=== PATIENT | male | born 1960 | race Caucasian/White ===

== ENCOUNTER 2017-04-01 13:58 | Emergency (ER) | payer MEDICARE, OTHER ==
[~2017-04-01] VITALS: Ht 185.4 cm; Wt 12.8 kg
[~2017-04-01 13:58] MED LIST: /PREG100CA PO; ABIL10TA PO; ABIL1TAB11 PO; ABIL1TAB12 PO; AZIL1TAB PO; AZIL1TAB2 PO; BEN GAY TOP; BUPR75TA5 PO; CLON2TAB PO; MELO7.5T7 PO; MICR10CA PO; MINI2CAP PO; MOTR200T PO; POTA10IN2 PO; PRAV1TAB39 PO; PREG100CA PO; PRIM250T8 PO; PRIM25TA PO; PROP10TA56 PO; REME15TA PO; ROPI1TA PO; ROPI2TAB24 PO; SERT-138 PO; TRAZ-136 PO; TRAZ100T2 PO; VITA-122 PO; VITATAB11 PO; [UNRECOGNIZED DRUG - CODE] PO
[2017-04-01] MEDS ORDERED: METF500T13 PO (14:08)
[2017-04-01] MEDS ORDERED: ASPIRIN 81 MG CHEW TABLET PO ONE (14:30)
[2017-04-01 14:32] LABS: BASO % 0.6 % (0.0-1.0); EOS # 0.2 K/mm3 (0.0-0.50); EOS % 2.9 % (0.0-3.0); LARGE UNSTAINED CELL # 0.2 K/mm3 (0.0-0.4); LARGE UNSTAINED CELL % 2.3 % (0.0-4.0); LYMPH # 2.5 K/mm3 (1.5-4.5); LYMPH % 29.9 % (24.0-44.0); MEAN CORPUSCULAR HEMOGLOBIN 29.9 pg (27.0-33.0); MEAN CORPUSCULAR HGB CONC 34.5 g/dl (32.0-36.5); MEAN CORPUSCULAR VOLUME 86.6 fl (80.0-96.0); MONO # 0.5 K/mm3 (0.0-0.8); NEUTROPHILS # 4.5 K/mm3 (1.8-7.7); NEUTROPHILS % 58.3 % (36.0-66.0); PLATELET COUNT, AUTOMATED 258 k/mm3 (150-450); RED CELL DISTRIBUTION WIDTH 13.1 % (11.5-14.5); WHITE BLOOD COUNT 7.7 K/mm3 (4.0-10.0)
[2017-04-01 14:56] LABS: ANION GAP 9 MEQ/L (8-16); BLOOD UREA NITROGEN 13 MG/DL (7-18); CARBON DIOXIDE LEVEL 25 MEQ/L (21-32); CHLORIDE LEVEL 112 MEQ/L (98-107); CREATININE FOR GFR 0.95 MG/DL (0.70-1.30); GLOMERULAR FILTRATION RATE > 60.0 (>56); GLUCOSE, FASTING 104 MG/DL (70-105); POTASSIUM SERUM 4.2 MEQ/L (3.5-5.1); SODIUM LEVEL 146 MEQ/L (136-145)
--- NOTE | 2017-04-01 15:19 | REP ---
PORTABLE CHEST, SINGLE VIEW: COMPARISON: 02/14/2014 There is mild bibasilar fibroatelectatic change. There is no acute infiltrate. The heart is normal in size. Mediastinal silhouette is unremarkable. IMPRESSION: Mild bibasilar fibroatelectatic change. No acute infiltrate. Signed by Ky Zamora MD 04/01/2017 04:47 P
[2017-04-01] MEDS ORDERED: ISOVUE-370 76% 100ML VIAL (Q9967) As Ordered ONE (15:23)
[2017-04-01] MEDS ORDERED: KETOROLAC 30 MG/ML VIAL (J1885) IV ONE (16:15)
--- NOTE | 2017-04-01 16:53 | REP ---
CT ANGIOGRAM OF THE CHEST: TECHNIQUE: Axial contrast enhanced images from the thoracic inlet to the upper abdomen using 100 mL Isovue 370 intravenous contrast material with multiplanar reformations. There are bibasilar fibro atelectatic changes. No acute infiltrate is seen in either lung. There is no thoracic aortic aneurysm or dissection. Pulmonary arteries are not optimally visualized due to breathing motion but no central pulmonary embolism is seen. There is no mediastinal, hilar, or chest wall lymphadenopathy. There is no pleural or pericardial effusion. Heart is normal in size. Visualized upper abdominal structures appear unremarkable. IMPRESSION: No thoracic aortic aneurysm or dissection. No central pulmonary embolism, the more peripheral pulmonary artery branches are not optimally seen due to breathing motion. Signed by Ky Zamora MD 04/04/2017 08:59 A
[2017-04-01 17:09] VITALS: BP 134/67
--- NOTE | 2017-04-02 08:15 | ECGEPIP ---
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
== END 2017-04-01 17:40 | disposition home or self-care (01) ==
LOC: M ED 13:58
DX: R07.89 Other chest pain (principal); R51 Headache; E11.9 Type 2 diabetes mellitus without complications; E78.5 Hyperlipidemia, unspecified; Z79.84 Long term (current) use of oral hypoglycemic drugs; Z79.899 Other long term (current) drug therapy
CPT/HCPCS: 71010; 71275; 80048; 82550; 82553; 83880; 84484; 85025; 93005; 93041; 94760; 96374; 99285; J1885; Q9967

== ENCOUNTER → 2017-05-19 | Outpatient (CLI) | payer MEDICARE, OTHER ==
[~2017-05-19] MED LIST changes: +METF500T13 PO
--- NOTE | 2017-05-24 19:12 | SLEEPCENT ---
DATE OF PROCEDURE: 05/19/2017 REQUESTING PROVIDER: Sivan Culver NP INTERPRETATION: Nocturnal polysomnography was performed due to concern for the obstructive sleep apnea syndrome in this patient with a prior history of obstructive sleep apnea, comorbidities of left ventricular hypertrophy and posttraumatic stress disorder (PTSD). 6 hours and 54 minutes of data were reviewed. There were 263 minutes of sleep identified. Sleep latency was prolonged at 47 minutes. Rapid eye movement (REM) latency was prolonged at 236 minutes. Sleep architecture showed poor progression with two brief REM episodes noted. Overall sleep efficiency was 64.5%. Electrocardiogram (EKG) showed a sinus rhythm with frequency PVCs. Average heart rate 62 beats per minute. Electroencephalogram (EEG) showed some coarsening in the background. No focal events were identified. There 38 respiratory events identified of 10 seconds in duration or greater for an apnea hypopnea index of 8.7. The events were primarily obstructive, not exclusive to sleep stage nor body posture. Respiratory related arousals occurred 1.6 times per hour. Some limb activity was noted but arousals from limb events were few. Oxygen desaturations surrounding respiratory events fell into the 80s. IMPRESSION: Obstructive sleep apnea syndrome (G47.33). Apnea-hypopnea index of 8.7. RECOMMENDATIONS: The patient should be encouraged to return to the sleep disorder center for pressure therapy. In the interim, alcohol and sedative avoidance should be practiced and caution exercised during the operation of motor vehicles.
== END ==
LOC: M SLEEP 18:54
PROVIDERS: ATTEND Nurse Practitioner Adult Health
DX: G47.33 Obstructive sleep apnea (adult) (pediatric) (principal)

== ENCOUNTER 2018-09-20 10:34 | Emergency (ER) | payer MEDICARE, OTHER ==
[~2018-09-20] VITALS: Ht 182.9 cm; Wt 129.6 kg
[~2018-09-20 10:34] MED LIST changes: +ASPI81TA85 PO; +ATOR80TA59 PO; +CLON2TAB7 PO; +PRAZ5CAP PO; +PROAAER10 INH; -TRAZ-136 PO; +TRAZ-163 PO
[2018-09-20] MEDS ORDERED: ASPIRIN 325 MG TAB PO ONE (11:00)
[2018-09-20 11:01] LABS: BASO % 0.3 % (0.0-1.0); EOS # 0.2 10^3/uL (0.0-0.50); EOS % 2.5 % (0.0-3.0); HEMATOCRIT 40.8 % (42.0-52.0); HEMOGLOBIN 13.7 g/dl (13.5-17.5); LYMPH # 2.2 10^3/uL (1.5-4.5); LYMPH % 25.2 % (24.0-44.0); MEAN CORPUSCULAR HEMOGLOBIN 29.3 pg (27.0-33.0); MEAN CORPUSCULAR HGB CONC 33.6 g/dl (32.0-36.5); MEAN CORPUSCULAR VOLUME 87.2 fl (80.0-96.0); MONO # 0.7 10^3/uL (0.0-0.8); MONO % 7.6 % (0.0-5.0); NEUTROPHILS # 5.6 10^3/uL (1.8-7.7); NEUTROPHILS % 64.1 % (36.0-66.0); PLATELET COUNT, AUTOMATED 259 10^3/uL (150-450); RED BLOOD COUNT 4.68 10^6/uL (4.30-6.10); WHITE BLOOD COUNT 8.7 10^3/uL (4.0-10.0)
[2018-09-20 11:16] LABS: INR 0.91; PROTHROMBIN TIME 12.3 SECONDS (12.1-14.4)
--- NOTE | 2018-09-20 11:16 | REP ---
Chest one-view HISTORY: Chest pain Comparison: 11/13/2017 The lungs are clear. The heart is normal in size. The pulmonary vasculature is normal in appearance. Impression: No acute disease. Electronically Signed by Fabrizio Mazariegos MD 09/20/2018 11:08 A
[2018-09-20 11:48] LABS: D-DIMER QUANT < 270.0 ng/ml (<500)
[2018-09-20 11:51] LABS: ALBUMIN 3.3 GM/DL (3.2-5.2); ALT/SGPT 62 U/L (12-78); BILIRUBIN,DIRECT < 0.1 MG/DL (0.0-0.2); BILIRUBIN,TOTAL 0.3 MG/DL (0.2-1.0); BLOOD UREA NITROGEN 10 MG/DL (7-18); CALCIUM LEVEL 8.5 MG/DL (8.8-10.2); CARBON DIOXIDE LEVEL 26 MEQ/L (21-32); CHLORIDE LEVEL 99 MEQ/L (98-107); CPK CREATINE PHOSPHOKINASE 70 U/L (39-308); CREATININE FOR GFR 0.93 MG/DL (0.70-1.30); GLOMERULAR FILTRATION RATE > 60.0 (>49); GLUCOSE, FASTING 424 MG/DL (70-100); MAGNESIUM LEVEL 1.9 MG/DL (1.8-2.4); MB/CK RELATIVE INDEX 2.43 (< OR =4); SODIUM LEVEL 133 MEQ/L (136-145); TOTAL PROTEIN 7.4 GM/DL (6.4-8.2)
[2018-09-20 11:52] LABS: LIPASE 211 U/L (73-393); NT-PRO BNP 22 PG/ML (<125); TROPONIN I < 0.02 NG/ML (< 0.10)
[2018-09-20 12:15] VITALS: BP 145/82
--- NOTE | 2018-09-20 21:11 | ECGEPIP ---
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
== END 2018-09-20 12:22 | disposition left against medical advice (07) ==
LOC: M ED 10:34
DX: R07.9 Chest pain, unspecified (principal); E78.5 Hyperlipidemia, unspecified; G20 Parkinson's disease

== ENCOUNTER → 2019-07-30 | Outpatient (CLI) | payer MEDICARE, OTHER ==
[~2019-07-30] MED LIST changes: -/PREG100CA PO; +ISOVUE-370 76% 100ML VIAL (Q9967) As Ordered ONE; +LYRI100C PO
--- NOTE | 2019-07-30 16:38 | REP ---
CT brain: New 07/30/2019. Indication: Neck mass. Metastatic workup. Comparison: 02/14/2014. Technique: Axial images of the brain were obtained from skull base to vertex including post contrast imaging. 75 ml IV Isovue 370 were administered. Findings: There is no acute intracranial hemorrhage, acute cortical infarction, mass effect, hydrocephalus or pathologic contrast enhancement. Mild diffuse volume loss is present. There is no significant fluid within the paranasal sinuses/mastoid air cells. The calvarium is intact. Impression: No acute intracranial process or evidence of intracranial metastatic disease. Electronically Signed by Hussein Gómez DO 07/30/2019 04:29 P
--- NOTE | 2019-07-30 17:07 | REP ---
CT neck: 07/30/2019. Indication: Neck mass. Comparison: None. Technique: Axial imaging of the neck soft tissues were obtained following IV administration of 75 ml Isovue 370. Sagittal and coronal reconstructions were provided. Findings: There is no abnormal solid soft tissue mass, abnormal fluid collection or cervical lymphadenopathy. No significant vascular abnormalities are detected. Visualized lungs are clear. The airway is patent. No ocular, intraorbital or intracranial abnormalities are detected. Impression: No abnormal solid soft tissue mass, abnormal fluid collection or cervical lymphadenopathy. Electronically Signed by Hussein Gómez DO 07/30/2019 04:59 P
== END ==
LOC: M RAD 15:20
PROVIDERS: ATTEND Internal Medicine
DX: R22.1 Localized swelling, mass and lump, neck (principal)
CPT/HCPCS: 70470; 70491; Q9967

== ENCOUNTER → 2019-09-26 | Outpatient (REF) | payer MEDICARE, OTHER ==
[~2019-09-26] MED LIST changes: -ISOVUE-370 76% 100ML VIAL (Q9967) As Ordered ONE; -TRAZ-163 PO; +TRAZ-257 PO
== END ==
LOC: M LABNEURO 11:10
PROVIDERS: ATTEND Physician Assistant Medical
DX: R25.1 Tremor, unspecified (principal)

== ENCOUNTER 2019-10-02 10:46 | Day surgery (SDC) | payer MEDICARE, OTHER ==
[~2019-10-02] VITALS: Ht 182.9 cm; Wt 127.0 kg
[~2019-10-02 10:46] MED LIST changes: +ECOT81TA5 PO; +FENO145T7 PO; +FISH1000 PO; +HM V4000 PO; +MOBI4TAB PO; +NS 1,000 ML IV ONE; +POTA10CA32 PO; +ROPI2TAB3 PO; +ROSU40TA4 PO
[2019-10-02] MEDS ORDERED: LIDOCAINE 2% INJ 100 MG/5 ML SDV (FOR ANES.) As Ordered ONE (11:13)
[2019-10-02] MEDS ORDERED: propofoL 200 MG/20 ML VIAL As Ordered ONE ×2 (11:13→12:14)
--- NOTE | 2019-10-02 12:42 | ROOR ---
Patient Name: Ky Fay Procedure Date: 10/02/2019 12:09 PM Date of : 1960 Age: 59 Room: [facility] [place] Gender: Male Note Status: Finalized Procedure: Total Colonoscopy to Cecum Indications: Screening for colorectal malignant neoplasm Providers: Ag Montague MD Referring MD: Dawit Etienne Md Requesting Provider: Medicines: Monitored Anesthesia Care Complications: No immediate complications. Procedure: Pre-Anesthesia Assessment: - The heart rate, respiratory rate, oxygen saturations, blood pressure, adequacy of pulmonary ventilation, and response to care were monitored throughout the procedure. The Colonoscope was introduced through the anus and advanced to the cecum, identified by appendiceal orifice and ileocecal valve. The colonoscopy was performed without difficulty. The patient tolerated the procedure well. The quality of the bowel preparation was good. Findings: The perianal and digital rectal examinations were normal. Non-bleeding internal hemorrhoids were found during retroflexion. The hemorrhoids were small and Grade I (internal hemorrhoids that do not prolapse). No other significant abnormalities were identified in a careful examination of the remainder of the colon. The exam was otherwise without abnormality on direct and retroflexion views. Impression: - Non-bleeding internal hemorrhoids. - The examination was otherwise normal on direct and retroflexion views. - No specimens collected. - The exam was otherwise normal to the cecum. Recommendation: - Patient has a contact number available for emergencies. The signs and symptoms of potential delayed complications were discussed with the patient. Return to normal activities tomorrow. Written discharge instructions were provided to the patient. - High fiber diet. - Discharge patient to home. - Continue present medications. - Repeat colonoscopy in 10 years for screening purposes. - Return to referring physician. - The findings and recommendations were discussed with the patient's family. Ag Montague MD Ag Montague MD 10/02/2019 12:42:00 PM Electronically signed by Ag Montague MD Number of Addenda: 0 Note Initiated On: 10/02/2019 12:09 PM Estimated Blood Loss: Estimated blood loss: none.
[2019-10-02 13:10] VITALS: BP 173/94
== END 2019-10-02 13:19 | disposition home or self-care (01) ==
LOC: M OPP 10:46
PROVIDERS: ATTEND Internal Medicine Gastroenterology
DX: Z12.11 Encounter for screening for malignant neoplasm of colon (principal); K64.0 First degree hemorrhoids; Z79.891 Long term (current) use of opiate analgesic; Z79.899 Other long term (current) drug therapy; F17.220 Nicotine dependence, chewing tobacco, uncomplicated

== ENCOUNTER → 2020-11-13 | Outpatient (REF) | payer MEDICARE, OTHER ==
[~2020-11-13] MED LIST changes: -ASPI81TA85 PO; +ASPI81TA86 PO; +MIRT-62 PO; -NS 1,000 ML IV ONE; -REME15TA PO
[2020-11-13 18:06] LABS: MONO SCRN NEGATIVE (NEGATIVE)
[2020-11-13 18:25] LABS: BASO # 0.1 10^3/uL (0.0-0.2); BASO % 0.7 % (0.0-1.0); EOS # 0.2 10^3/uL (0.0-0.5); EOS % 3.1 % (0.0-3.0); HEMATOCRIT 42.3 % (42.0-52.0); HEMOGLOBIN 13.9 g/dl (13.5-17.5); LYMPH # 2.5 10^3/uL (1.5-5.0); LYMPH % 34.9 % (24.0-44.0); MEAN CORPUSCULAR HEMOGLOBIN 28.5 pg (27.0-33.0); MEAN CORPUSCULAR HGB CONC 32.9 g/dl (32.0-36.5); MEAN CORPUSCULAR VOLUME 86.7 fl (80.0-96.0); MONO # 0.6 10^3/uL (0.0-0.8); MONO % 8.1 % (2.0-8.0); NEUTROPHILS # 3.7 10^3/uL (1.5-8.5); NEUTROPHILS % 52.9 % (36.0-66.0); PLATELET COUNT, AUTOMATED 250 10^3/uL (150-450); RED BLOOD COUNT 4.88 10^6/uL (4.30-6.10); WHITE BLOOD COUNT 7.1 10^3/uL (4.0-10.0)
[2020-11-13 19:04] LABS: ALBUMIN 3.6 GM/DL (3.2-5.2); ALT/SGPT 43 U/L (12-78); BILIRUBIN,TOTAL 0.2 MG/DL (0.2-1.0); BLOOD UREA NITROGEN 16 MG/DL (7-18); CALCIUM LEVEL 8.9 MG/DL (8.8-10.2); CARBON DIOXIDE LEVEL 26 MEQ/L (21-32); CHLORIDE LEVEL 99 MEQ/L (98-107); CREATININE FOR GFR 0.78 MG/DL (0.70-1.30); FREE T4 0.92 NG/DL (0.76-1.46); GLOMERULAR FILTRATION RATE > 60.0 (>49); GLUCOSE, FASTING 280 MG/DL (70-100); IRON (FE) 67 UG/DL (65-175); POTASSIUM SERUM 4.2 MEQ/L (3.5-5.1); SODIUM LEVEL 132 MEQ/L (136-145); TOTAL 25(OH) VITAMIN D 12.2 NG/ML (30.0-100.0); TOTAL IRON BINDING CAPACITY 305 UG/DL (250-450); TOTAL PROTEIN 7.4 GM/DL (6.4-8.2)
== END ==
LOC: M LAB REF 16:12
PROVIDERS: ATTEND Physician Assistant
DX: R53.83 Other fatigue (principal); Z79.899 Other long term (current) drug therapy

== ENCOUNTER 2021-04-26 08:05 | Observation (INO) | payer MEDICARE, OTHER ==
[~2021-04-26] VITALS: Ht 185.4 cm; Wt 124.4 kg
[2021-04-26] MEDS ORDERED: ASPIRIN 81 MG CHEW TABLET PO ONE (08:35)
[2021-04-26 08:37] LABS: BASO % 0.4 % (0.0-1.0); EOS # 0.3 10^3/uL (0.0-0.5); EOS % 2.4 % (0.0-3.0); HEMATOCRIT 43.7 % (42.0-52.0); HEMOGLOBIN 14.4 g/dl (13.5-17.5); LYMPH # 2.7 10^3/uL (1.5-5.0); LYMPH % 25.8 % (24.0-44.0); MEAN CORPUSCULAR HEMOGLOBIN 29.3 pg (27.0-33.0); MEAN CORPUSCULAR VOLUME 88.8 fl (80.0-96.0); MONO # 0.8 10^3/uL (0.0-0.8); MONO % 7.4 % (2.0-8.0); NEUTROPHILS # 6.6 10^3/uL (1.5-8.5); NEUTROPHILS % 63.6 % (36.0-66.0); PLATELET COUNT, AUTOMATED 295 10^3/uL (150-450); RED BLOOD COUNT 4.92 10^6/uL (4.30-6.10); WHITE BLOOD COUNT 10.4 10^3/uL (4.0-10.0)
[2021-04-26] MEDS ORDERED: JARD1TAB3 PO (08:44)
[2021-04-26] MEDS ORDERED: ACAR50TA3 PO (08:44)
[2021-04-26] MEDS ORDERED: ABIL10TA9 PO (08:44)
[2021-04-26] MEDS ORDERED: HYDR-643 PO (08:44)
[2021-04-26] MEDS ORDERED: TRAM1CAP15 PO (08:44)
--- NOTE | 2021-04-26 08:56 | REP ---
INDICATION: CHEST PAIN. COMPARISON: 09/20/2018. TECHNIQUE: AP view of the chest was performed. FINDINGS: There is no acute infiltrate or pulmonary edema. Lungs are clear. The heart is not significantly enlarged. The mediastinal silhouette is unremarkable. The visualized osseous structures are intact. IMPRESSION: No acute pulmonary disease. <Electronically signed by Ky Zamora > 04/26/21 0852
[2021-04-26 09:48] LABS: ALBUMIN 3.5 GM/DL (3.2-5.2); ALT/SGPT 44 U/L (12-78); BILIRUBIN,DIRECT < 0.1 MG/DL (0.0-0.2); BILIRUBIN,TOTAL 0.5 MG/DL (0.2-1.0); BLOOD UREA NITROGEN 22 MG/DL (7-18); CALCIUM LEVEL 8.8 MG/DL (8.8-10.2); CARBON DIOXIDE LEVEL 26 MEQ/L (21-32); CHLORIDE LEVEL 97 MEQ/L (98-107); CREATININE FOR GFR 1.23 MG/DL (0.70-1.30); GLOMERULAR FILTRATION RATE > 60.0 (>49); GLUCOSE, FASTING 315 MG/DL (70-100); LIPASE 204 U/L (73-393); NT-PRO BNP 29 PG/ML (<125); POTASSIUM SERUM 3.9 MEQ/L (3.5-5.1); SODIUM LEVEL 133 MEQ/L (136-145); TOTAL PROTEIN 7.6 GM/DL (6.4-8.2)
[2021-04-26] MEDS ORDERED: ONDANSETRON 4MG/2ML VIAL IV ONE (09:50)
[2021-04-26] MEDS ORDERED: ISOVUE-370 76% 100ML VIAL As Ordered ONE (10:29)
--- NOTE | 2021-04-26 11:17 | REP ---
INDICATION: CP/near syncope. COMPARISON: 04/01/2017. TECHNIQUE: CT angiogram chest performed following the intravenous administration of 100 cc of Isovue 370. Sagittal and coronal reconstruction images are performed. FINDINGS: Lungs: Clear, no infiltrate or nodule. Mediastinum: No adenopathy. Pulmonary arteries: No evidence of pulmonary embolism. Jackie: No adenopathy. Axilla: No adenopathy. Pleura: No effusion. Heart: Not enlarged. Thoracic aorta: No aneurysm or dissection. Upper abdominal structures: Unremarkable. Visualized osseous structures: There are mild degenerative changes of the spine without compression deformity. IMPRESSION: No CT evidence of pulmonary embolism. No infiltrate seen. <Electronically signed by Ky Zamora > 04/26/21 1119
[2021-04-26 14:29] LABS: RSV AMPLIFICATION NEGATIVE (NEGATIVE)
[2021-04-26] MEDS ORDERED: ZOLO100T PO (14:43)
[2021-04-26] MEDS ORDERED: METF10004 PO (14:43)
[2021-04-26] MEDS ORDERED: MELO15TA28 PO (14:43)
[2021-04-26] MEDS ORDERED: D31000TA2 PO (14:43)
[2021-04-26] MEDS ORDERED: VENTAER INH (14:43)
[2021-04-26] MEDS ORDERED: BUPR300T92 PO (14:43)
[2021-04-26] MEDS ORDERED: TRAM50TA2 PO (15:02)
[2021-04-26] MEDS ORDERED: HOME MED LIST COMPLETE! XX SCH (15:05)
[2021-04-26] MEDS ORDERED: GLUCOSE 4GM CHEW TABLET PO PRN (15:10)
[2021-04-26] MEDS ORDERED: GLUCAGON INJ 1MG VIAL SC PRN (15:10)
[2021-04-26] MEDS ORDERED: DEXTROSE 50% 50 ML SYRINGE IV PRN (15:10)
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
[2021-04-26 16:10] VITALS: BP_SYST 130; BP_SYST 131; BP_SYST 132; BP_DIAS 84; BP_DIAS 86
[2021-04-26 16:35] VITALS: BP 132/86
[2021-04-26] MEDS: HumaLOG INSULIN (NovoLOG) PER UNIT SC SCH (17:06)
[2021-04-26] MEDS: LEVEMIR (INSULIN DETEMIR) 1 UNITS/0.01ML SC SCH (17:06)
--- NOTE | 2021-04-26 18:34 | REP ---
INDICATION: presyncope COMPARISON: None. TECHNIQUE: Real-time ultrasound evaluation and duplex Doppler interrogation of the extracranial carotid vasculature is performed. FINDINGS: There is mild plaquing and narrowing in both carotid bulbs extending into the internal and external carotid arteries. Luminal narrowing is less than 50%. There is no evidence of hemodynamically significant stenosis of either internal carotid artery. Normal flow velocities are seen. The vertebral arteries demonstrate normal direction of flow. RIGHT LEFT Peak systolic velocity ICA 76.7 cm/s 76.8 cm/s End diastolic velocity ICA 31.7 cm/s 31.5 cm/s Peak systolic velocity CCA 103.9 cm/s 106.4cm/s Peak systolic velocity ECA 126.9 cm/s 113.7 cm/s ICA/CCA ratio 0.74 0.72 IMPRESSION: Bilateral luminal narrowing of the internal carotid arteries less than 50%. No evidence of hemodynamically significant stenosis. <Electronically signed by Ky Zamora > 04/26/21 1962
[2021-04-26 18:37] LABS: CK-MB VALUE MASS < 1.0 NG/ML (<3.6); CPK CREATINE PHOSPHOKINASE 45 U/L (39-308); MB/CK RELATIVE INDEX 2.22 (< OR =4); TROPONIN I < 0.02 NG/ML (< 0.10)
--- NOTE | 2021-04-26 20:08 | ECGEPIP ---
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
[2021-04-26 20:15] VITALS: BP 141/85
[2021-04-26] MEDS: PREGABALIN 100 MG CAP (LYRICA) PO SCH (20:29)
[2021-04-26 20:34] VITALS: BP 141/85
[2021-04-26] MEDS ORDERED: PRAZOSIN 1 MG CAP PO SCH (21:00)
[2021-04-26] MEDS ORDERED: rOPINIRole 2MG TAB PO SCH (21:00)
[2021-04-26] MEDS ORDERED: HumaLOG INSULIN (NovoLOG) PER UNIT SC SCH (21:00)
[2021-04-27] MEDS ORDERED: ALBUTEROL 90 MCG/ACT 8GM HFA INHALER INH PRN (00:45)
[2021-04-27] MEDS ORDERED: traMADol 50 MG TAB PO PRN (00:45)
[2021-04-27] MEDS: DICLOFENAC EPOLAMINE 1.3 % PATCH TOP SCH ×2 (01:52→08:36)
[2021-04-27 02:02] LABS: HEMOGLOBIN A1c 10.7 %
[2021-04-27 05:59] LABS: BASO % 0.5 % (0.0-1.0); EOS # 0.3 10^3/uL (0.0-0.5); EOS % 4.4 % (0.0-3.0); HEMATOCRIT 39.3 % (42.0-52.0); LYMPH # 2.7 10^3/uL (1.5-5.0); LYMPH % 34.5 % (24.0-44.0); MEAN CORPUSCULAR HEMOGLOBIN 28.9 pg (27.0-33.0); MEAN CORPUSCULAR HGB CONC 33.1 g/dl (32.0-36.5); MEAN CORPUSCULAR VOLUME 87.3 fl (80.0-96.0); MONO # 0.7 10^3/uL (0.0-0.8); MONO % 8.7 % (2.0-8.0); NEUTROPHILS % 51.5 % (36.0-66.0); PLATELET COUNT, AUTOMATED 227 10^3/uL (150-450); WHITE BLOOD COUNT 7.7 10^3/uL (4.0-10.0)
[2021-04-27 06:18] VITALS: BP_SYST 127; BP_SYST 135; BP_SYST 138; BP_DIAS 80; BP_DIAS 81; BP_DIAS 85
[2021-04-27 06:27] LABS: BLOOD UREA NITROGEN 19 MG/DL (7-18); CALCIUM LEVEL 8.7 MG/DL (8.8-10.2); CARBON DIOXIDE LEVEL 25 MEQ/L (21-32); CHLORIDE LEVEL 106 MEQ/L (98-107); CREATININE FOR GFR 0.64 MG/DL (0.70-1.30); GLOMERULAR FILTRATION RATE > 60.0 (>49); GLUCOSE, FASTING 210 MG/DL (70-100); POTASSIUM SERUM 4.1 MEQ/L (3.5-5.1); SODIUM LEVEL 137 MEQ/L (136-145)
[2021-04-27] MEDS: HumaLOG INSULIN (NovoLOG) PER UNIT SC SCH (08:38)
[2021-04-27] MEDS: LEVEMIR (INSULIN DETEMIR) 1 UNITS/0.01ML SC SCH (08:38)
[2021-04-27] MEDS: PREGABALIN 100 MG CAP (LYRICA) PO SCH (08:39)
[2021-04-27] MEDS ORDERED: FLUBLOK(EGG FREE)(QUAD)INFLUENZA VACC 0.5ML SYRINGE 18YRS & OLDER IM ONE (09:00)
[2021-04-27] MEDS ORDERED: ASPIRIN 81MG ENTERIC TABLET PO SCH (09:00)
[2021-04-27] MEDS ORDERED: ENOXAPARIN 40MG/0.4ML SYRINGE (J1650 PER 10MG) SC SCH (09:00)
[2021-04-27] MEDS ORDERED: VITAMIN D 1,000 INTERNATIONAL UNITS TABLET PO SCH (09:00)
[2021-04-27] MEDS ORDERED: ARIPiprazole 10 MG TAB PO SCH (09:00)
[2021-04-27] MEDS ORDERED: ROSUVASTATIN 10 MG TAB (CRESTOR) PO SCH (09:00)
[2021-04-27] MEDS ORDERED: SERTRALINE 100 MG TAB PO SCH (09:00)
[2021-04-27] MEDS ORDERED: MELOXICAM (MOBIC) 7.5 MG TAB PO SCH (09:00)
[2021-04-27] MEDS ORDERED: PRIMIDONE 250 MG TAB PO SCH (09:00)
[2021-04-27] MEDS ORDERED: FENOFIBRATE 145MG TABLET (TRICOR) PO SCH (09:00)
[2021-04-27] MEDS ORDERED: buPROPion **XL** TABLET 150MG (WELLBUTRIN XL) PO SCH (09:00)
[2021-04-27] MEDS ORDERED: PEN1MIS22 SC (09:04)
[2021-04-27] MEDS ORDERED: BASA100I SC (09:04)
[2021-04-27] MEDS ORDERED: BLOOKIT21 XX (09:04)
[2021-04-27] MEDS ORDERED: LANC30MI XX (09:04)
[2021-04-27] MEDS ORDERED: GLUC1TES2 XX (09:04)
[2021-04-27] MEDS ORDERED: ALCOPAD25 TOP (09:04)
[2021-04-27] MEDS ORDERED: LANTINJ4 SC (10:24)
--- NOTE | 2021-04-27 13:41 | DS.PDOC ---
Discharge Summary General Date of Admission Apr 26, 2021 at 08:06 Date of Discharge 04/27/21 Discharge Summary PROCEDURES PERFORMED DURING STAY: [None]. DISCHARGE DIAGNOSES: Presyncope possibly vasovagal Atypical chest pain ruled out ACS Uncontrolled diabetes Secondary diagnosis diabetes, hypertension, hyperlipidemia, DARLINE, obesity, pituitary adenoma, essential tremor, Parkinson's, restless leg syndrome, chronic depression, PTSD, panic disorder with agoraphobia, alcohol abuse in remission, degenerative disc disease, chronic low back pain, carpal tunnel syndrome, cervical radiculopathy, hemorrhoids, vitamin B12 deficiency, left varicocele, fibromyalgia, migraines, COMPLICATIONS/CHIEF COMPLAINT: Pre-Syncope. HOSPITAL COURSE: 61-year-old male with history of diabetes, hypertension, hyperlipidemia, DARLINE, PTSD, depression, chronic back pain, radiculopathy, presented to the ED with complaints of chest pain and dizziness and lightheadedness which almost made him pass out. In the ED his EKG shows sinus rhythm regular rate. His vitals were stable. His labs were within normal limits except for elevated glucose of over 300. He had a two sets of cardiac troponins which were negative. He had a CT angio of the chest which was negative for Pulmonary embolism. He is admitted for evaluation of presyncope and chest pain. Presyncopal episode associated with sweating and sensation of heat Likely vasovagal Negative orthostatic hypotension 36-hour telemetry without any cardiac arrhythmia carotid Doppler less than 50% obstruction Atypical chest pain No EKG changes suggestive of acute ischemia at present and 2 sets of troponins have been negative. Echo was ordered however patient did not want to stay longer to get it done. He said he is going to get a referral to cardiology from his PMD and get it done as an outpatient. Will need further cardiac work-up as an outpatient as him being a diabetic he is very high risk of CAD. We will continue with aspirin and statin Diabetes Uncontrolled Continue home Started him on Lantus insulin Fingerstick twice a day Follow-up with PMD Hyperlipidemia continue fenofibrate and statin Depression/PTSD Continue bupropion, Abilify, sertraline Essential tremors Continue primidone Restless leg syndrome Continue ropinirole Chronic back pain radiculopathy leg neuropathy Continue Lyrica, meloxicam DISCHARGE MEDICATIONS: Please see below. ALLERGIES: Please see below. PHYSICAL EXAMINATION ON DISCHARGE: VITAL SIGNS: Please see below. General Exam: Positive: Alert, Cooperative, No Acute Distress Eye Exam: Positive: PERRLA, Conjunctiva & lids normal, EOMI; Negative: Sclera icteric ENT Exam: Positive: Atraumatic, Mucous membr. moist/pink, Pharynx Normal Neck Exam: Positive: Supple; Negative: JVD, thyromegaly Chest Exam: Positive: Clear to auscultation, Diminished (Distant breath sounds all over) Heart Exam: Positive: Rate Normal, Regular Rhythm, Normal S1, Normal S2; Negative: Murmurs, Rubs Telemetry: Positive: No significant arrhythmia Abdomen Exam: Positive: Normal bowel sounds, Soft, Other (Of); Negative: Tenderness Extremity Exam: Negative: Clubbing, Cyanosis, Edema Skin Exam: Positive: Nl turgor and temperature; Negative: Breakdown, Lesion Psych Exam: Positive: Memory Intact, Oriented x 3 LABORATORY DATA: Please see below. ACTIVITY: [As tolerated]. DIET: Carb consistent DISPOSITION: 01 Home, Self-Care. DISCHARGE INSTRUCTIONS: PMD in 1 week Needs referral to cardiology for work-up of coronary artery disease Needs an echo DISCHARGE CONDITION: [Stable]. TIME SPENT ON DISCHARGE: 35 minutes. Vital Signs/I&Os Vital Signs Date Time Temp Pulse Resp B/P (MAP) Pulse Ox O2 Delivery O2 Flow Rate FiO2 04/27/21 06:18 91 138/81 (100) 92 135/80 (98) 105 127/85 (99) 04/27/21 06:00 98.3 19 93 Room Air I&O- Last 24 Hours up to 6 AM 04/27/21 05:59 Intake Total 700 ml Balance 700 ml Laboratory Data Labs 24H Laboratory Tests 2 04/26/21 13:46: Coronavirus (COVID-19)(PCR) NEGATIVE, Influenza Type A (RT-PCR) NEGATIVE, Influenza Type B (RT-PCR) NEGATIVE, Respiratory Syncytial Virus (PCR) NEGATIVE 04/26/21 16:49: Bedside Glucose (Misc Panel) 329H 04/26/21 17:47: Total Creatine Kinase 45, Creatine Kinase MB < 1.0, Creatine Kinase MB Relative Index 2.22, Troponin I < 0.02 04/26/21 20:08: Bedside Glucose (Misc Panel) 337H 04/27/21 05:33: Immature Granulocyte % (Auto) 0.4, Neutrophils (%) (Auto) 51.5, Lymphocytes (%) (Auto) 34.5, Monocytes (%) (Auto) 8.7H, Eosinophils (%) (Auto) 4.4H, Basophils (%) (Auto) 0.5, Neutrophils # (Auto) 4.0, Lymphocytes # (Auto) 2.7, Monocytes # (Auto) 0.7, Eosinophils # (Auto) 0.3, Basophils # (Auto) 0.0, Nucleated Red B lood Cells % (auto) 0.0, Anion Gap 6L, Glomerular Filtration Rate > 60.0, Calcium Level 8.7L CBC/BMP Laboratory Tests 04/27/21 05:33 FSBS Laboratory Tests Test 04/26/21 16:49 04/26/21 20:08 Range/Units Bedside Glucose (Misc Panel) 329 337 80-115 MG/DL Discharge Medications Scheduled Acarbose (Acarbose) 50 Mg Tablet, 50 MG PO TID, (Reported) Aripiprazole (Abilify) 10 Mg Tablet, 10 MG PO DAILY, (Reported) Aspirin (Ecotrin) 81 Mg Tablet.dr, 81 MG PO DAILY, (Reported) Blood Sugar Diagnostic (Advanced Glucose Test Strips) 1 Each Strip, 100 STRIP XX BID Bupropion HCl (Bupropion Xl) 300 Mg Tab.er.24h, 300 MG PO DAILY, (Reported) Cholecalciferol (Vitamin D3) (Vitamin D3) 1,000 Unit Tablet, 3,000 UNITS PO DAILY, (Reported) Empagliflozin (Jardiance) 25 Mg Tablet, 25 MG PO DAILY, (Reported) Fenofibrate Nanocrystallized (Fenofibrate) 145 Mg Tablet, 145 MG PO DAILY, (Reported) Insulin Glargine,Hum.rec.anlog (Lantus Solostar) 100 Unit/1 Ml Insuln.pen, 10 UNIT SC QPM Meloxicam (Meloxicam) 15 Mg Tablet, 7.5 MG PO DAILY, (Reported) Metformin HCl (Metformin HCl) 1,000 Mg Tablet, 1,000 MG PO BID, (Reported) Potassium Chloride (Potassium Chloride) 10 Meq Capsule.er, 10 MEQ PO DAILY, (R eported) Prazosin Hcl (Prazosin HCl) 5 Mg Cap, 10 MG PO QHS, (Reported) Pregabalin (Lyrica) 100 Mg Cap, 100 MG PO BID, (Reported) Primidone (Primidone) 250 Mg Tab, 250 MG PO DAILY, (Reported) Ropinirole HCl (Ropinirole HCl) 2 Mg Tablet, 2 MG PO QHS, (Reported) Rosuvastatin Calcium (Rosuvastatin Calcium) 40 Mg Tablet, 40 MG PO DAILY, (Repo rted) Sertraline Hcl (Zoloft) 100 Mg Tablet, 100 MG PO DAILY, (Reported) Scheduled PRN Albuterol Sulfate (Ventolin Hfa) 18 Gm Hfa.aer.ad, 2 PUFFS INH QID PRN for SOB/WHEEZING, (Reported) Hydroxyzine HCl (Hydroxyzine HCl) 10 Mg Tablet, 10 MG PO BID PRN for ANXIETY, (Reported) Tramadol HCl (Tramadol HCl) 50 Mg Tablet, 50 MG PO DAILY PRN for PAINFUL PROCEDURES, (Reported) Allergies Coded Allergies: No Known Allergies (Verified , 10/01/19) Gisella Kraft MD Apr 27, 2021 13:41
--- NOTE | 2021-04-28 17:50 | ECGEPIP ---
[facility] Test Date: 2021-04-26 Pat Name: ALVERTO BHATT Department: Room: [place] [address] Gender: Male Steel Tier: maurice : 1960 Requested By: Gisella Kraft Order Number: [id number] Reading MD: Abdon Morales Measurements Intervals [place] Rate: 88 P: 53 HI: 182 QRS: 68 QRSD: 88 T: 54 QT: 370 QTc: 447 Interpretive Statements Normal sinus rhythm COMPARED TO 04/26/21 HR is slower and STT abnormalities are no longer apparent Electronically Signed on 04-28-2021 17:50:12 EDT by Abdon Morales
== END 2021-04-27 11:12 | disposition home or self-care (01) ==
LOC: M ED 08:05 → M ED INP 08:06 → ENRESERV 14:55 → M MSPAV 15:27
PROVIDERS: ADMIT Internal Medicine Nephrology; ATTEND Internal Medicine Nephrology
DX: R07.89 Other chest pain (principal); R55 Syncope and collapse; E11.65 Type 2 diabetes mellitus with hyperglycemia; I10 Essential (primary) hypertension; E78.5 Hyperlipidemia, unspecified; G47.33 Obstructive sleep apnea (adult) (pediatric); E66.9 Obesity, unspecified; D35.2 Benign neoplasm of pituitary gland; G25.0 Essential tremor; G20 Parkinson's disease; G25.81 Restless legs syndrome; F43.10 Post-traumatic stress disorder, unspecified; F32.9 Major depressive disorder, single episode, unspecified; F41.0 Panic disorder [episodic paroxysmal anxiety]; F10.11 Alcohol abuse, in remission; M54.5 Low back pain; M54.2 Cervicalgia; E53.9 Vitamin B deficiency, unspecified; M79.7 Fibromyalgia; G43.909 Migraine, unspecified, not intractable, without status migrainosus; Z79.82 Long term (current) use of aspirin; Z79.4 Long term (current) use of insulin; Z79.84 Long term (current) use of oral hypoglycemic drugs; Z79.899 Other long term (current) drug therapy
CPT/HCPCS: 36415; 71045; 71275; 80048; 80076; 82550; 82553; 83036; 83690; 83880; 84443; 84484; 85025; 87631; 90682; 93005; 93041; 93306; 93880; 94760; 96372; 96374; 99285; G0008; G0378; J1650; J2405; Q9967

== ENCOUNTER 2022-05-19 00:50 | Emergency (ER) | payer MEDICARE, OTHER ==
[~2022-05-19] VITALS: Ht 182.9 cm; Wt 122.5 kg
[~2022-05-19 00:50] MED LIST changes: +ABIL10TA9 PO; +ACAR50TA3 PO; +ALCOPAD25 TOP; +BASA100I SC; +BLOOKIT21 XX; +BUPR300T92 PO; +GLUC1TES2 XX; +HYDR-643 PO; +JARD1TAB3 PO; +LANC30MI XX; +LANTINJ4 SC; +MELO15TA28 PO; +METF10004 PO; +PEN1MIS22 SC; +TRAM1CAP15 PO; +TRAM50TA2 PO; +VENTAER INH; +VITA100093 PO; +ZOLO100T PO
[2022-05-19 01:32] LABS: BASO % 0.4 % (0.0-1.0); EOS # 0.1 10^3/uL (0.0-0.5); EOS % 1.1 % (0.0-3.0); HEMATOCRIT 41.2 % (42.0-52.0); LYMPH % 26.3 % (24.0-44.0); MEAN CORPUSCULAR HEMOGLOBIN 28.3 pg (27.0-33.0); MEAN CORPUSCULAR HGB CONC 31.6 g/dl (32.0-36.5); MEAN CORPUSCULAR VOLUME 89.8 fl (80.0-96.0); MONO # 1.1 10^3/uL (0.0-0.8); MONO % 15.1 % (2.0-8.0); NEUTROPHILS # 4.2 10^3/uL (1.5-8.5); NEUTROPHILS % 56.8 % (36.0-66.0); PLATELET COUNT, AUTOMATED 275 10^3/uL (150-450); RED BLOOD COUNT 4.59 10^6/uL (4.30-6.10); WHITE BLOOD COUNT 7.4 10^3/uL (4.0-10.0)
[2022-05-19 02:05] LABS: BLOOD UREA NITROGEN 17 MG/DL (7-18); CARBON DIOXIDE LEVEL 27 MEQ/L (21-32); CHLORIDE LEVEL 104 MEQ/L (98-107); CREATININE FOR GFR 1.03 MG/DL (0.70-1.30); GLOMERULAR FILTRATION RATE > 60.0 (>49); GLUCOSE, FASTING 260 MG/DL (70-100); POTASSIUM SERUM 3.9 MEQ/L (3.5-5.1); SODIUM LEVEL 136 MEQ/L (136-145)
[2022-05-19 02:09] LABS: CK-MB VALUE MASS 1.3 NG/ML (<3.6); MB/CK RELATIVE INDEX 0.94 (< OR =4)
[2022-05-19 03:28] LABS: CK-MB VALUE MASS < 1.0 NG/ML (<3.6); CPK CREATINE PHOSPHOKINASE 119 U/L (39-308); MB/CK RELATIVE INDEX 0.84 (< OR =4)
[2022-05-19] MEDS ORDERED: ISOVUE-370 76% 100ML VIAL As Ordered ONE (04:03)
[2022-05-19 07:42] VITALS: BP 164/98
== END 2022-05-19 07:43 | disposition home or self-care (01) ==
LOC: M ED 00:50
DX: U07.1 COVID-19 (principal); E78.5 Hyperlipidemia, unspecified; K21.9 Gastro-esophageal reflux disease without esophagitis; E11.9 Type 2 diabetes mellitus without complications; Z87.442 Personal history of urinary calculi; Z79.51 Long term (current) use of inhaled steroids; Z79.4 Long term (current) use of insulin; Z79.899 Other long term (current) drug therapy
CPT/HCPCS: 36415; 71045; 71275; 80048; 82550; 82553; 84484; 85025; 93005; 93041; 94760; 99285; Q9967

== ENCOUNTER 2022-08-31 02:13 | Emergency (ER) | payer MEDICARE, OTHER ==
[~2022-08-31] VITALS: Ht 185.4 cm; Wt 120.9 kg
[~2022-08-31 02:13] MED LIST changes: -POTA10CA32 PO; +POTA10CA33 PO
[2022-08-31] MEDS ORDERED: ASPIRIN 81MG CHEW TABLET PO ONE (03:00)
[2022-08-31 03:48] LABS: BASO # 0.1 10^3/uL (0.0-0.2); BASO % 0.6 % (0.0-1.0); EOS # 0.4 10^3/uL (0.0-0.5); EOS % 3.8 % (0.0-3.0); HEMATOCRIT 41.5 % (42.0-52.0); HEMOGLOBIN 13.5 g/dl (13.5-17.5); LYMPH # 3.1 10^3/uL (1.5-5.0); MEAN CORPUSCULAR HEMOGLOBIN 28.2 pg (27.0-33.0); MEAN CORPUSCULAR HGB CONC 32.5 g/dl (32.0-36.5); MEAN CORPUSCULAR VOLUME 86.6 fl (80.0-96.0); MONO # 0.8 10^3/uL (0.0-0.8); MONO % 7.4 % (2.0-8.0); PLATELET COUNT, AUTOMATED 292 10^3/uL (150-450); RED BLOOD COUNT 4.79 10^6/uL (4.30-6.10); WHITE BLOOD COUNT 10.3 10^3/uL (4.0-10.0)
[2022-08-31 04:22] LABS: RSV AMPLIFICATION NEGATIVE (NEGATIVE)
[2022-08-31] MEDS ORDERED: KETOROLAC 30 MG/ML 1ML VIAL IV ONE (04:35)
[2022-08-31] MEDS ORDERED: ISOVUE-370 76% 100ML VIAL As Ordered ONE (04:41)
[2022-08-31 04:52] LABS: CPK CREATINE PHOSPHOKINASE 71 U/L (46-171)
[2022-08-31 05:47] LABS: LIPASE 39 U/L (12-53)
[2022-08-31 05:48] LABS: BILIRUBIN,DIRECT < 0.1 MG/DL (<0.4)
[2022-08-31 05:49] LABS: ALBUMIN 3.6 G/DL (3.2-5.2); ALKALINE PHOSPHATASE 67 U/L (46-116); ALT/SGPT 44 U/L (7.0-40); AST/SGOT 28 U/L (<34); BILIRUBIN,TOTAL 0.3 MG/DL (0.3-1.2); BLOOD UREA NITROGEN 17 MG/DL (9-23); CALCIUM LEVEL 8.9 MG/DL (8.3-10.6); CARBON DIOXIDE LEVEL 24 MMOL/L (20-31); CHLORIDE LEVEL 103 MMOL/L (98-107); CREATININE FOR GFR 0.76 MG/DL (0.70-1.30); GLOMERULAR FILTRATION RATE > 60.0 (>49); GLUCOSE, FASTING 236 MG/DL (74-106); POTASSIUM SERUM 4.5 MMOL/L (3.5-5.1); SODIUM LEVEL 137 MMOL/L (136-145); TOTAL PROTEIN 7.1 G/DL (5.7-8.2)
[2022-08-31 05:51] LABS: THYROID STIMULATING HORMONE 5.045 uIU/ML (0.55-4.78)
[2022-08-31] MEDS ORDERED: LIDO5DIS41 TD (05:59)
[2022-08-31] MEDS ORDERED: HYDR-3713 PO (05:59)
[2022-08-31 06:00] VITALS: BP 128/69
[2022-08-31] MEDS ORDERED: LIDOCAINE 5% (LIDODERM) PATCH TD ONE (06:00)
[2022-08-31 12:42] LABS: CK-MB VALUE MASS < 1.0 NG/ML (<3.6)
== END 2022-08-31 06:31 | disposition home or self-care (01) ==
LOC: M ED 02:13
DX: R07.9 Chest pain, unspecified (principal); E11.9 Type 2 diabetes mellitus without complications; F32.A Depression, unspecified; F43.10 Post-traumatic stress disorder, unspecified; Z79.84 Long term (current) use of oral hypoglycemic drugs; Z79.51 Long term (current) use of inhaled steroids; Z79.899 Other long term (current) drug therapy
CPT/HCPCS: 71045; 71275; 80047; 80048; 80076; 82550; 82553; 83690; 83880; 84443; 84484; 85025; 85379; 87631; 93005; 93041; 94760; 96374; 99285; Q9967

== ENCOUNTER → 2023-05-30 | Outpatient (CLI) | payer MEDICARE, OTHER ==
[~2023-05-30] MED LIST changes: +HYDR-3713 PO; +ISOVUE-370 76% 100ML VIAL As Ordered ONE; +LIDO5DIS41 TD; -MIRT-62 PO; +MIRT-88 PO; -POTA10CA33 PO; +POTA10CA60 PO; -ROPI2TAB3 PO; +ROPI2TAB46 PO
== END ==
LOC: M RAD 12:39
PROVIDERS: ATTEND Internal Medicine
DX: R22.1 Localized swelling, mass and lump, neck (principal)
CPT/HCPCS: 70491; Q9967

== ENCOUNTER → 2023-08-12 | Outpatient (CLI) | payer OTHER, MEDICARE ==
[~2023-08-12] MED LIST changes: -ISOVUE-370 76% 100ML VIAL As Ordered ONE
== END ==
LOC: M PLARAD 07:46
PROVIDERS: ATTEND Internal Medicine
DX: M48.061 Spinal stenosis, lumbar region without neurogenic claudication (principal); M54.16 Radiculopathy, lumbar region

== ENCOUNTER 2023-12-01 05:07 | Emergency (ER) | payer OTHER, MEDICARE ==
[~2023-12-01] VITALS: Ht 182.9 cm; Wt 124.6 kg
[2023-12-01 05:08] VITALS: BP 148/78; TEMP 97.4; O2SAT 96
== END 2023-12-01 05:22 | disposition left against medical advice (07) ==
LOC: M ED 05:07
DX: Z53.21 Procedure and treatment not carried out due to patient leaving prior to being seen by health care provider (principal)

== ENCOUNTER 2024-01-26 12:10 | Day surgery (SDC) | payer OTHER, MEDICARE ==
[~2024-01-26] VITALS: Ht 182.9 cm; Wt 125.3 kg
[~2024-01-26 12:10] MED LIST changes: +BENZ1TAB5 PO; +BUPR-597 PO; -BUPR300T92 PO; +EQL50TAB2 PO; +OMEG10002 PO; +OMEP-173 PO; -POTA10CA60 PO; +POTA10CA70 PO; +ROPI3TAB18 PO; -ROSU40TA4 PO; +ROSU40TA63 PO; +TOPA50TA8 PO
[2024-01-26] MEDS: NS 1,000 ML IV ONE (12:58)
[2024-01-26] MEDS ORDERED: GLYCOPYRROLATE INJ 0.2 MG/ML 2 ML VIAL As Ordered ONE (13:02)
[2024-01-26] MEDS ORDERED: LIDOCAINE 2% 100MG/5ML SDV (FOR ANES.) As Ordered ONE (13:02)
[2024-01-26] MEDS ORDERED: fentaNYL 100 MCG/2 ML INJECTION As Ordered ONE (13:02)
[2024-01-26] MEDS ORDERED: propofoL 200 MG/20 ML VIAL As Ordered ONE (13:02)
[2024-01-26 14:31] VITALS: TEMP 98.5
[2024-01-26 14:45] VITALS: BP 140/63; O2SAT 94
== END 2024-01-26 15:11 | disposition home or self-care (01) ==
LOC: M OPP 12:10
PROVIDERS: ATTEND Internal Medicine Gastroenterology
DX: R13.10 Dysphagia, unspecified (principal); R11.2 Nausea with vomiting, unspecified; R13.11 Dysphagia, oral phase; G47.30 Sleep apnea, unspecified; Z99.89 Dependence on other enabling machines and devices
CPT/HCPCS: 43239; 43249; 88305; J3010

== ENCOUNTER → 2024-05-29 | Outpatient (REF) | payer OTHER ==
[~2024-05-29] MED LIST changes: -ROSU40TA63 PO; +ROSU40TA81 PO
== END ==
LOC: M SFHCDERM 13:21
PROVIDERS: ATTEND Nurse Practitioner Family
DX: L30.8 Other specified dermatitis (principal); L85.9 Epidermal thickening, unspecified
CPT/HCPCS: 11104; 88305; G0463

== ENCOUNTER 2024-06-20 01:21 | Emergency (ER) | payer MEDICARE, OTHER ==
[~2024-06-20] VITALS: Ht 185.4 cm; Wt 123.3 kg
[2024-06-20 02:40] LABS: BASO % 0.2 % (0.0-1.0); EOS # 0.3 10^3/uL (0.0-0.5); EOS % 2.3 % (0.0-3.0); HEMATOCRIT 43.1 % (42.0-52.0); HEMOGLOBIN 14.5 g/dl (13.5-17.5); LYMPH # 2.9 10^3/uL (1.5-5.0); LYMPH % 21.4 % (24.0-44.0); MEAN CORPUSCULAR HEMOGLOBIN 28.7 pg (27.0-33.0); MEAN CORPUSCULAR HGB CONC 33.6 g/dl (32.0-36.5); MEAN CORPUSCULAR VOLUME 85.2 fl (80.0-96.0); MONO # 1.1 10^3/uL (0.0-0.8); MONO % 8.2 % (2.0-8.0); NEUTROPHILS # 9.1 10^3/uL (1.5-8.5); NEUTROPHILS % 67.5 % (36.0-66.0); RED BLOOD COUNT 5.06 10^6/uL (4.30-6.10); WHITE BLOOD COUNT 13.4 10^3/uL (4.0-10.0)
[2024-06-20 03:15] LABS: ALBUMIN 3.5 G/DL (3.2-5.2); ALKALINE PHOSPHATASE 73 U/L (40-129); ALT/SGPT 53 U/L (7.0-40); AST/SGOT 37 U/L (<34); BILIRUBIN,DIRECT < 0.1 MG/DL (<0.4); BILIRUBIN,TOTAL 0.3 MG/DL (0.3-1.2); BLOOD UREA NITROGEN 18 MG/DL (9-23); CALCIUM LEVEL 9.8 MG/DL (8.3-10.6); CARBON DIOXIDE LEVEL 25 MMOL/L (20-31); CHLORIDE LEVEL 103 MMOL/L (98-107); GLOMERULAR FILTRATION RATE > 60.0 (>49); GLUCOSE, FASTING 190 MG/DL (74-106); LIPASE 36 U/L (12-53); POTASSIUM SERUM 4.9 MMOL/L (3.5-5.1); SODIUM LEVEL 135 MMOL/L (136-145); TOTAL PROTEIN 7.6 G/DL (5.7-8.2)
[2024-06-20] MEDS: ONDANSETRON 4MG 2ML VIAL IV ONE (03:53)
[2024-06-20] MEDS: NS 1,000 ML IV ONE ×2 (04:00→06:06)
[2024-06-20] MEDS ORDERED: ISOVUE-370 76% 100ML VIAL As Ordered ONE (04:06)
[2024-06-20] MEDS ORDERED: ONDA-282 PO (06:34)
[2024-06-20 07:01] VITALS: BP 136/79; O2SAT 95
[2024-06-20 07:25] VITALS: TEMP 98.9
== END 2024-06-20 07:26 | disposition home or self-care (01) ==
LOC: M ED 01:21
DX: K52.9 Noninfective gastroenteritis and colitis, unspecified (principal); R16.2 Hepatomegaly with splenomegaly, not elsewhere classified; M16.0 Bilateral primary osteoarthritis of hip; J98.11 Atelectasis; E11.9 Type 2 diabetes mellitus without complications; E78.5 Hyperlipidemia, unspecified; M54.50 Low back pain, unspecified; F41.9 Anxiety disorder, unspecified; F32.A Depression, unspecified; Z79.82 Long term (current) use of aspirin; Z79.52 Long term (current) use of systemic steroids; Z79.4 Long term (current) use of insulin; Z79.83 Long term (current) use of bisphosphonates; Z79.899 Other long term (current) drug therapy
CPT/HCPCS: 74177; 80048; 80076; 80178; 83690; 85025; 87486; 87581; 87633; 87798; 96361; 96374; 99284; J2405; Q9967

== ENCOUNTER → 2024-07-24 | Outpatient (CLI) | payer OTHER, MEDICARE ==
[~2024-07-24] MED LIST changes: +ONDA-282 PO
== END ==
LOC: M SLEEP 20:00
PROVIDERS: ATTEND Internal Medicine
DX: G47.33 Obstructive sleep apnea (adult) (pediatric) (principal)

== ENCOUNTER → 2024-11-19 | Outpatient (CLI) | payer OTHER ==
[~2024-11-19] MED LIST changes: +PROHANCE 279.3MG/ML 15ML VIAL As Ordered ONE
== END ==
LOC: M RAD 15:16
PROVIDERS: ATTEND Internal Medicine
DX: D35.2 Benign neoplasm of pituitary gland (principal)
CPT/HCPCS: 70553; A9576

== ENCOUNTER 2024-12-02 22:54 | Emergency (ER) | payer OTHER ==
[~2024-12-02] VITALS: Ht 182.9 cm; Wt 119.0 kg
[~2024-12-02 22:54] MED LIST changes: -PROHANCE 279.3MG/ML 15ML VIAL As Ordered ONE
[2024-12-02 22:56] VITALS: BP 130/62; TEMP 101.2; O2SAT 97
== END 2024-12-03 00:40 | disposition left against medical advice (07) ==
LOC: M ED 22:54
DX: Z53.21 Procedure and treatment not carried out due to patient leaving prior to being seen by health care provider (principal)